=== PATIENT | female | born 1990 | race Asian ===

== ENCOUNTER 2024-05-02 04:33 | Emergency (ER) | payer OTHER ==
[2024-05-02 04:56] VITALS: BP 110/76; PULSE 91; RESP 18; TEMP 98; BMI 30.4
[2024-05-02] MEDS ORDERED: ACETAMINOPHEN 500 MG TABLET (FP) ONE (05:13)
[2024-05-02] MEDS: ACETAMINOPHEN 500 MG TABLET (FP) PO ONE (05:15)
== END 2024-05-02 06:33 | disposition home or self-care (01) ==
LOC: JER 04:33
DX: S92.515A Nondisplaced fracture of proximal phalanx of left lesser toe(s), initial encounter for closed fracture (principal); W10.8XXA Fall (on) (from) other stairs and steps, initial encounter
CPT/HCPCS: 73630-TC-LT; 73660-TC-LT-FY; 99283-25